=== PATIENT | female | born 1980 | race African-American/Black ===

== ENCOUNTER → 2016-12-12 | Outpatient (CLI) | payer OTHER ==
--- NOTE | 2016-12-16 10:20 | SLEEPCENT ---
DATE OF PROCEDURE: 12/12/2016 ORDERED BY: Shonna Ca NP Nocturnal polysomnography was performed for evaluation of sleep apnea syndrome symptoms in this patient with a history of sleep difficulties, excessive somnolence and morning headaches. 8 hours and 7 minutes of data were reviewed. There were 450 minutes of sleep identified. Sleep latency was normal at 7.5 minutes. Rapid eye movement (REM) was normal at 90 minutes. Sleep architecture was quite good. There were REM periods of significant duration. Overall sleep efficiency was 94.7%. REM time was above that, which is normally predicted. The patient's electrocardiogram (EKG) showed a sinus rhythm with an average heart rate of 88 beats per minute. Electroencephalogram (EEG) showed some coarsening consistent with medication effect, but no focal events were identified. There were only 18 respiratory events identified of 10 seconds in duration or greater for an apnea hypopnea index within normal range of 2.4 events per hour. Some snoring was noted. Arousals from respiratory events, when arousals were from snoring were included, occurred 3.1 times per hour. There were scattered limb events, but no trains of events were identified. Limb movement arousal index was 5.7. IMPRESSION: Normal nocturnal polysomnography with snoring.
== END ==
LOC: M SLEEP 19:26
PROVIDERS: ATTEND Nurse Practitioner Adult Health
DX: G47.30 Sleep apnea, unspecified (principal)

== ENCOUNTER → 2017-03-02 | Outpatient (CLI) | payer OTHER ==
[~2017-03-02] VITALS: Ht 170.2 cm; Wt 76.7 kg
[~2017-03-02] MED LIST: ACYC1CAP8 PO; AMIT10TA PO; BUSP30TA PO; COLA100C3 PO; MELA3TAB PO; NS 1,000 ML IV SCH; PERC5TAB6 PO; SUMA25TA3 PO; TOPA25TA10 PO; VALACYCLOVIR; VALT500T PO; XULA1DIS TOP; ZOFR20TA PO
--- NOTE | 2017-03-02 14:09 | ROOR ---
Patient Name: Kimberly Gonzalez Procedure Date: 03/02/2017 1:52 PM Date of : 1980 Age: 36 Room: [facility] Gender: Female Note Status: Finalized Procedure: Colonoscopy to Cecum Indications: Rectal bleeding, Constipation Providers: Sunday Joseph MD Referring MD: BRITTANY BARROS MD Requesting Provider: Medicines: Monitored Anesthesia Care Complications: No immediate complications. Procedure: Pre-Anesthesia Assessment: - The heart rate, respiratory rate, oxygen saturations, blood pressure, adequacy of pulmonary ventilation, and response to care were monitored throughout the procedure. The Colonoscope was introduced through the anus and advanced to the cecum, identified by appendiceal orifice and ileocecal valve. The colonoscopy was performed without difficulty. The patient tolerated the procedure well. The quality of the bowel preparation was excellent. Findings: The perianal and digital rectal examinations were normal. Non-bleeding internal hemorrhoids were found during retroflexion. The hemorrhoids were small and Grade I (internal hemorrhoids that do not prolapse). No other significant abnormalities were identified in a careful examination of the remainder of the colon. The exam was otherwise without abnormality on direct and retroflexion views. Impression: - Non-bleeding internal hemorrhoids. - The examination was otherwise normal on direct and retroflexion views. - No specimens collected. - The exam was otherwise normal to the cecum. Recommendation: - Patient has a contact number available for emergencies. The signs and symptoms of potential delayed complications were discussed with the patient. Return to normal activities tomorrow. Written discharge instructions were provided to the patient. - High fiber diet. - Discharge patient to home. - Continue present medications. - Repeat colonoscopy at age 48 for screening purposes. - Return to referring physician. - The findings and recommendations were discussed with the patient's family. Sunday Joseph MD Sunday Joseph MD 03/02/2017 2:08:40 PM This report has been signed electronically. Number of Addenda: 0 Note Initiated On: 03/02/2017 1:52 PM Estimated Blood Loss: Estimated blood loss: none.
[2017-03-02 14:42] VITALS: BP 130/92
== END | disposition home or self-care (01) ==
LOC: M OPP 13:16
PROVIDERS: ATTEND Internal Medicine Gastroenterology
DX: K62.5 Hemorrhage of anus and rectum (principal); K59.00 Constipation, unspecified; K64.0 First degree hemorrhoids; R19.4 Change in bowel habit; Z79.899 Other long term (current) drug therapy

== ENCOUNTER 2017-03-04 06:27 | Inpatient (IN) | payer OTHER ==
[~2017-03-04] VITALS: Ht 170.2 cm; Wt 169.0 kg
[~2017-03-04 06:27] MED LIST changes: -NS 1,000 ML IV SCH; -PERC5TAB6 PO; -ZOFR20TA PO
[2017-03-04] MEDS ORDERED: LR 1,000 ML IV SCH (07:00)
[2017-03-04 07:06] LABS: BASO % 0.3 % (0.0-1.0); EOS # 0.1 K/mm3 (0.0-0.50); EOS % 1.9 % (0.0-3.0); LARGE UNSTAINED CELL # 0.1 K/mm3 (0.0-0.4); LARGE UNSTAINED CELL % 1.2 % (0.0-4.0); LYMPH # 1.2 K/mm3 (1.5-4.5); MEAN CORPUSCULAR HEMOGLOBIN 31.5 pg (27.0-33.0); MEAN CORPUSCULAR HGB CONC 32.9 g/dl (32.0-36.5); MEAN CORPUSCULAR VOLUME 95.8 fl (80.0-96.0); MONO # 0.2 K/mm3 (0.0-0.8); MONO % 3.3 % (0.0-5.0); NEUTROPHILS # 3.5 K/mm3 (1.8-7.7); NEUTROPHILS % 70.2 % (36.0-66.0); PLATELET COUNT, AUTOMATED 245 k/mm3 (150-450); RED CELL DISTRIBUTION WIDTH 12.4 % (11.5-14.5)
[2017-03-04 07:17] LABS: CONTROL LINE HCG INT CTR LINE PRESENT
[2017-03-04] MEDS ORDERED: ceFAZolin 1GM INJ (J0690) As Ordered ONE ×2 (08:05→13:02)
[2017-03-04] MEDS ORDERED: fentaNYL 250 MCG/5 ML INJECTION (J3010) As Ordered ONE (08:05)
[2017-03-04] MEDS ORDERED: ROCURONIUM BROMIDE 50 MG/5 ML VIAL As Ordered ONE ×2 (08:05→11:31)
[2017-03-04] MEDS ORDERED: ONDANSETRON 4MG/2ML VIAL (J2405) As Ordered ONE (08:05)
[2017-03-04] MEDS ORDERED: PROPOFOL 200 MG/20 ML VIAL As Ordered ONE (08:05)
[2017-03-04] MEDS ORDERED: MIDAZOLAM INJ 2 MG/2 ML VIAL (J2250) As Ordered ONE (08:05)
[2017-03-04] MEDS ORDERED: LIDOCAINE 2% INJ 100 MG/5 ML SDV (FOR ANES.) As Ordered ONE (08:05)
[2017-03-04] MEDS ORDERED: dexameTHASONE 4 MG/ML 1ML VIAL (J1100) As Ordered ONE (08:05)
[2017-03-04] MEDS ORDERED: ceFAZolin SOD 1 GM in D5W MINI-BAG PLUS 50 ML IV ONE (08:15)
[2017-03-04] MEDS ORDERED: SEVOFLURANE INHAL SOLN 250 ML BTL As Ordered ONE (08:19)
[2017-03-04] MEDS ORDERED: BUPIVACAINE HCL 0.5% 30 ML VIAL As Ordered ONE (08:41)
[2017-03-04] MEDS ORDERED: PHENYLephrine HCL 500 MCG/5 ML (100MCG/ML) SYRINGE (J2370) As Ordered ONE (10:18)
[2017-03-04] MEDS ORDERED: HYDROmorphone HCL 2 MG/ML 1ML VIAL (J1170) As Ordered ONE (10:29)
[2017-03-04] MEDS ORDERED: NEOSTIGMINE 1MG/ML 5 ML SYRINGE (J2710) As Ordered ONE (10:29)
[2017-03-04] MEDS ORDERED: KETOROLAC 60 MG/2 ML VIAL (J1885) As Ordered ONE (10:29)
[2017-03-04] MEDS ORDERED: GLYCOPYRROLATE INJ 0.2 MG/ML 2 ML VIAL As Ordered ONE (10:29)
[2017-03-04] MEDS ORDERED: ePHEDrine SULFATE 25 MG/5 ML(5MG/ML) SYRINGE As Ordered ONE (10:53)
[2017-03-04] MEDS ORDERED: METHYLENE BLUE 0.5% (5MG/ML) 10 ML AMP (PROVAYBLUE)(Q9968 PER 1MG) As Ordered ONE ×2 (11:42→12:58)
[2017-03-04] MEDS: LR 1,000 ML IV SCH (13:29)
[2017-03-04] MEDS ORDERED: diphenhydrAMINE INJ 50MG/ML VIAL (J1200) IV PRN (13:30)
[2017-03-04] MEDS ORDERED: PERCOCET 5MG/325MG TAB PO PRN (13:30)
[2017-03-04] MEDS ORDERED: ONDANSETRON 4 MG TAB (S0181) PO PRN (13:30)
--- NOTE | 2017-03-04 15:16 | RO ---
DATE OF PROCEDURE: 03/04/2017 PREPROCEDURE DIAGNOSIS: Abnormal Uterine Bleeding and Fibroid Uterus POSTPROCEDURE DIAGNOSIS: 1) Abnormal Uterine Bleeding and Fibroid Uterus 2) Cystotomy and repair PROCEDURE: Total laparoscopic hysterectomy, bilateral salpingectomy, cystoscopy , repair of cystotomy. SURGEON: Ta Ghotra MD GLOBAL PROCESS OWNER: Andreas Abreu MD ANESTHESIA: General In short, the patient is a 36-year-old, 2, para 2 using a patch for contraception with negative test, who presents for definitive management of known fibroid uterus and abnormal bleeding. Reviewed previous treatment options and declines any further hormonal management. Also declines any endometrial ablation. Desires definitive surgical management at this point. DESCRIPTION OF PROCEDURE: The risks/benefits/alternatives/indications are reviewed with the patient and informed consent was obtained. The patient was taken to the operating room where general anesthesia was obtained without difficulty. She was then placed in low lithotomy position using Kris stirrups with the arms tucked. Examination under anesthesia shows significant for an 8 week size, midline, mobile uterus. She was then prepped and draped in a normal sterile fashion. A Don catheter was placed. After 1 gram of Ancef was given, a sterile speculum was placed in the patient's vagina and the cervix was easily visualized. A single toothed tenaculum was used to grasp the anterior lip of the cervix. An #0 Vicryl stitch was placed through the anterior lip of the cervix and the single tooth tenaculum was removed. This allowed manipulation of the cervix and ease of placement, per sales office coordinator recommendations, a large V-Care. After this was appropriately placed, the speculum was removed from the vagina. The gloves were then exchanged. Attention was then turned to the patient's abdomen where a 5 mm skin incision was made in the lower margin of the umbilicus. A 5 mm trocar and sleeve were then carefully introduced into the peritoneal cavity under direct visualization at a 90-degree angle, tenting up the anterior abdominal wall. Intraperitoneal placement was confirmed by an entering pressure of less than 5 mmHg and pneumoperitoneum was obtained with several liters of CO2 gas at a maximum pressure of 15 mmHg. Upon entering the peritoneal cavity, structures immediately below the incision were found to be free of injury. Survey of the patient's anatomy noted normal bilateral fallopian tubes, normal right ovary, as well as a large simple appearing follicular cyst upon the left ovary, previously mentioned fibroid uterus was noted. Normal liver edge. Three additional trocar sites, initially a 5 mm on the left and a 5 mm on the right with a second 5 mm trocar ended up being placed in the right lower quadrant under direct laparoscopic placement with 5.5% Marcaine plain utilized for anesthesia. Stabilizing the uterus with the manipulator, the LigaSure and harmonic was then used to clamp, cut, and ligate the round ligaments bilaterally. Then the anterior broad ligament was incised along the bladder reflection bilaterally and a bladder flap was created. Ureters were identified bilaterally, coursing along the lateral pelvic side escobar prior to beginning the case. Bilateral fallopian tubes were grasped and removed by LigaSure in routine fashion up to the cornua region and were then independently removed through the 5 mm trocar without issue. The uterine arteries were then identified, skeletonized, and electrodissected with combination LigaSure and harmonic scalpel. Ureterosacral ligaments, cardinal ligaments were transected bilaterally using the harmonic device. Anterior and posterior colpotomy was made with the harmonic scalpel and a complete colpotomy was performed circumferentially inferior to the cervix using the [employer] colpotomy ring for guidance. The entire cervix and uterus were then successfully amputated from the vagina. A glove with latex was used to maintain pneumoperitoneum during this time. Hemostasis was noted. Uterus and cervix were then delivered through the vagina. The vagina was occluded with a sterile glove to maintain pneumoperitoneum. This was able to be successfully removed. With use of a sponge stick, the vaginal cuff was closed with #0 Vicryl in a running locked fashion anterior to posterior. The cystoscope was then primed and advanced through the urethra into the bladder. Both ureteral orifices were identified; however, small apparent iatrogenic 1.5 cm injury to the mid level of the bladder was noted. The cystoscope was then removed. Laparoscopic attention was then returned abdominally, after gloves were exchanged. Laparoscopically identified the injury to the bladder. Using a laparoscopic needle city bus driver and a combination of #0 Vicryl, as well as #0 PDS, the cystotomy was closed externally with four single interrupted sutures. This was performed by Dr. Abreu. All the rest of the surgical sites were noted to be hemostatic. Attention was then again turned toward the vaginal area. The cystoscope was then again primed and advanced through the urethra and into the bladder. Closure of the bladder was noted with no leakage of fluid appreciated from laparoscopic view. Bilateral efflux of methylene blue was then noted from bilateral ureteral orifices. No other injury was noted. A gas bubble was apparent at the upper aspect of the dome of the bladder. The cystoscope was then removed and a Don catheter was placed to drain the bladder. Attention was then again returned to the abdomen. All pedicles were noted to be hemostatic. The 10 mm trocar that was initially placed was closed. All trocars were removed under direct visualization. The gas was turned off. The 10 mm trocar site was closed with S retractors and a UR 6 in a [id number] stitch. Palpation of the fascia demonstrated it to be closed. The remainder of the trocar sites were closed with #4-0 Monocryl in a subcuticular fashion. All incision sites were then dressed with Dermabond. Needle, lap, and sponge counts were correct times two. A manual examination was performed and noted excellent suspension and elevation of the vagina. The patient was taken to the postanesthesia care unit in stable condition. 2 grams of Ancef were provided due to the length of the case of approximately 3-1/2 hours. MTDD
[2017-03-04] MEDS: PERCOCET 5MG/325MG TAB PO PRN ×2 (15:53→21:18)
[2017-03-04 16:30] VITALS: BP 159/69
[2017-03-04 17:00] VITALS: BP 145/60
[2017-03-04] MEDS: KETOROLAC 30 MG/ML VIAL (J1885) IV SCH ×2 (17:54→23:45)
[2017-03-04 18:00] VITALS: BP 132/86
[2017-03-04 19:00] VITALS: BP 130/67
[2017-03-04 20:00] VITALS: BP 117/82
[2017-03-04 21:00] VITALS: BP 129/73
[2017-03-04] MEDS: DOCUSATE SODIUM 100 MG CAP PO SCH (21:18)
[2017-03-05] VITALS: BP 112/73
[2017-03-05] MEDS: LR 1,000 ML IV SCH (02:49)
[2017-03-05 04:00] VITALS: BP 127/76
[2017-03-05] MEDS: KETOROLAC 30 MG/ML VIAL (J1885) IV SCH ×3 (04:44→17:00)
[2017-03-05 07:17] LABS: MEAN CORPUSCULAR HEMOGLOBIN 32.3 pg (27.0-33.0); MEAN CORPUSCULAR HGB CONC 33.5 g/dl (32.0-36.5); MEAN CORPUSCULAR VOLUME 96.3 fl (80.0-96.0); RED CELL DISTRIBUTION WIDTH 12.5 % (11.5-14.5); WHITE BLOOD COUNT 10.3 K/mm3 (4.0-10.0)
[2017-03-05 08:00] VITALS: BP 131/83
[2017-03-05] MEDS: DOCUSATE SODIUM 100 MG CAP PO SCH (08:52)
[2017-03-05 12:00] VITALS: BP 123/75
[2017-03-05] MEDS ORDERED: PERC5TAB6 PO (13:29)
[2017-03-05] MEDS ORDERED: ZOFR20TA PO (13:29)
[2017-03-05 16:00] VITALS: BP 140/88
== END 2017-03-05 18:21 | disposition home or self-care (01) | DRG 743 ==
LOC: M OR 06:27 → M PED 16:16
PROVIDERS: ADMIT Student in an Organized Health Care Education/Training Program; ATTEND Student in an Organized Health Care Education/Training Program
PROC: 0UTC4ZZ Resection of Cervix, Percutaneous Endoscopic Approach (ICD-10-PCS; 2017-03-04)
PROC: 0UT74ZZ Resection of Bilateral Fallopian Tubes, Percutaneous Endoscopic Approach (ICD-10-PCS; 2017-03-04)
PROC: 0TQB4ZZ Repair Bladder, Percutaneous Endoscopic Approach (ICD-10-PCS; 2017-03-04)
PROC: 0UT9FZZ Resection of Uterus, Via Natural or Artificial Opening With Percutaneous Endoscopic Assistance (ICD-10-PCS; principal; 2017-03-04 08:40)
DX: N93.9 Abnormal uterine and vaginal bleeding, unspecified (principal); D25.1 Intramural leiomyoma of uterus; N72 Inflammatory disease of cervix uteri; N83.02 Follicular cyst of left ovary; R50.82 Postprocedural fever

== ENCOUNTER 2017-03-08 03:48 | Emergency (ER) | payer OTHER ==
[~2017-03-08] VITALS: Ht 170.2 cm; Wt 75.3 kg
[~2017-03-08 03:48] MED LIST changes: +PERC5TAB6 PO; +ZOFR20TA PO
[2017-03-08] MEDS ORDERED: NS 1,000 ML IV SCH (06:30)
[2017-03-08 06:57] LABS: BASO % 0.1 % (0.0-1.0); EOS # 0.1 K/mm3 (0.0-0.50); EOS % 1.1 % (0.0-3.0); LARGE UNSTAINED CELL # 0.1 K/mm3 (0.0-0.4); LARGE UNSTAINED CELL % 0.4 % (0.0-4.0); LYMPH # 0.8 K/mm3 (1.5-4.5); LYMPH % 5.7 % (24.0-44.0); MEAN CORPUSCULAR HEMOGLOBIN 31.9 pg (27.0-33.0); MEAN CORPUSCULAR HGB CONC 32.8 g/dl (32.0-36.5); MONO # 0.3 K/mm3 (0.0-0.8); MONO % 2.1 % (0.0-5.0); NEUTROPHILS # 11.6 K/mm3 (1.8-7.7); NEUTROPHILS % 90.5 % (36.0-66.0); PLATELET COUNT, AUTOMATED 230 k/mm3 (150-450); RED CELL DISTRIBUTION WIDTH 12.3 % (11.5-14.5); WHITE BLOOD COUNT 12.8 K/mm3 (4.0-10.0)
[2017-03-08 07:43] LABS: ANION GAP 5 MEQ/L (8-16); BLOOD UREA NITROGEN 8 MG/DL (7-18); CALCIUM LEVEL 8.4 MG/DL (8.5-10.1); CARBON DIOXIDE LEVEL 30 MEQ/L (21-32); CHLORIDE LEVEL 107 MEQ/L (98-107); CREATININE FOR GFR 0.86 MG/DL (0.55-1.02); GLOMERULAR FILTRATION RATE > 60.0 (>60); GLUCOSE, FASTING 93 MG/DL (70-105); POTASSIUM SERUM 3.6 MEQ/L (3.5-5.1); SODIUM LEVEL 142 MEQ/L (136-145)
[2017-03-08] MEDS ORDERED: ISOVUE-370 76% 100ML VIAL (Q9967) As Ordered ONE (07:45)
[2017-03-08] MEDS ORDERED: MORPHINE 4 MG/ML 1ML SYRINGE IV ONE (07:45)
--- NOTE | 2017-03-08 08:18 | REP ---
CT abdomen pelvis with IV contrast, without bowel contrast: The visualized lung ab are unremarkable. The hepatic parenchyma, gallbladder, pancreas and spleen are normal size unremarkable. The adrenals, kidneys and abdominal aorta are unremarkable. There is no hydronephrosis. There is no bowel distension or obstruction. There is pneumoperitoneum with a small volume of intraperitoneal air anterior to the liver. There is subcutaneous emphysema in the anterior abdominal wall. Pelvis: There is a Don catheter in the bladder, the bladder is collapsed. There is mild wall thickening of the appendix, however there is no appendix lumen distension. The finding is nonspecific. The appendix measures up to 9 mm diameter as a consequence of the wall thickening. The the patient has a hysterectomy. There is a 5.6 cm cyst in the left adnexa. There is no ascites or free fluid. No adenopathy. Impression: The patient has a hysterectomy. There is a 5.6 cm cyst in the left adnexa. The appendiceal escobar are mildly thickened, however there is no luminal distension. There is no periappendiceal inflammation. There is no free fluid in the pelvis. No adenopathy. No bowel distension or obstruction. There is pneumoperitoneum with a small volume of intraperitoneal air anterior to the liver. There is subcutaneous emphysema in the anterior abdominal wall. Signed by Wayne Sterling MD 03/08/2017 08:10 A
[2017-03-08 10:04] VITALS: BP 132/92
--- NOTE | 2017-03-08 18:36 | ED PDOC ---
Post-Departure Follow-Up dr gregory faxed formal report of ct abd/p for fu Sharlene Cristobal MD Mar 08, 2017 18:36
== END 2017-03-08 10:05 | disposition home or self-care (01) ==
LOC: M ED 05:07
DX: N83.202 Unspecified ovarian cyst, left side (principal); N93.8 Other specified abnormal uterine and vaginal bleeding; Z79.899 Other long term (current) drug therapy; G43.909 Migraine, unspecified, not intractable, without status migrainosus
CPT/HCPCS: 36415; 74177; 80048; 85025; 86850; 86900; 86901; 96374; 99284; Q9967